=== PATIENT | male | born 1980 | race Hispanic/Latino ===

== ENCOUNTER 2018-05-05 15:09 | Outpatient (CLI) | payer OTHER ==
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
== END 2018-05-05 15:10 | disposition home or self-care (01) ==
LOC: TBSIIMAG 15:09
PROVIDERS: ATTEND Neurological Surgery
DX: S22.008A Other fracture of unspecified thoracic vertebra, initial encounter for closed fracture (principal); S42.022D Displaced fracture of shaft of left clavicle, subsequent encounter for fracture with routine healing
CPT/HCPCS: 72070